=== PATIENT | female | born 1935 | race Caucasian/White ===

== ENCOUNTER 2020-12-04 17:04 | Emergency (ER) | payer MEDICARE, OTHER ==
[2020-12-04 18:16] LABS: BASOPHIL 0.2 % (0-2); EOSINOPHIL 0.1 % (0-7); HCT 49.8 % (37.0-47.0); HGB 16.6 g/dl (12.5-16.0); LYMPHOCYTE 11.5 % (15-48); MCH 30.2 pg (25.0-31.0); MCHC 33.3 g/dL (32.0-36.0); MCV 90.5 fL (78.0-100.0); MONOCYTE 7.5 % (0-12); MPV 10.2 fL (6.0-9.5); NEUTROPHIL 80.4 % (41-80); NRBC 0; PLT 229 K/uL (150-400); RDW 13.2 % (11.5-14.0); WBC 14.3 K/uL (4.0-10.5)
[2020-12-04 18:17] LABS: BILIRUBIN NEGATIVE (NEGATIVE); BLOOD NEGATIVE Ery/uL (NEGATIVE); CLARITY CLEAR (CLEAR); COLOR YELLOW (YELLOW); GLUCOSE (U) NORMAL (NORMAL); LEUKOCYTES 1+ Leu/uL (NEGATIVE); NITRITE NEGATIVE (NEGATIVE); PROTEIN NEGATIVE (NEGATIVE); SPECIFIC GRAVITY <=1.005 (1.001-1.030); UROBILINOGEN 0.2 mg/dL (0.2-1.0)
[2020-12-04 18:33] LABS: BACTERIA TRACE; URINARY WBC RARE
[2020-12-04 18:37] LABS: ALBUMIN 3.8 g/dL (3.4-5.0); BILIRUBIN - TOTAL 0.8 mg/dL (0.2-1.0); BUN/CREAT RATIO (CALC) 18.9 RATIO; CREATININE 0.53 mg/dL (0.51-0.95); GLOBULIN (CALCULATION) 4.2 g/dL
[2020-12-04] MEDS ORDERED: TRAMADOL HCL50 MG PO (21:10)
[2021-01-02] MEDS ORDERED: PRILOSEC20 MG PO (10:52)
[2021-01-02] MEDS ORDERED: CENTRUM SILVER1 EAC1 PO (10:52)
[2021-01-02] MEDS ORDERED: NORVASC5 MG PO (10:52)
[2021-01-02] MEDS ORDERED: ZOFRAN4 M1 PO (10:53)
[2021-01-03] MEDS ORDERED: MOTRIN600 MG PO (08:44)
[2021-01-03] MEDS ORDERED: ACETAMINOPHEN500 M1 PO (08:44)
== END 2020-12-04 21:20 | disposition home or self-care (01) ==
LOC: FER 17:04
PROVIDERS: Emergency Medicine
DX: R10.12 Left upper quadrant pain (principal); R10.32 Left lower quadrant pain; I10 Essential (primary) hypertension; K21.9 Gastro-esophageal reflux disease without esophagitis; Z90.49 Acquired absence of other specified parts of digestive tract; Z88.5 Allergy status to narcotic agent
CPT/HCPCS: 36415; 80053; 81001; 82150; 83605; 83690; 85025; J7030

== ENCOUNTER → 2021-01-03 | Day surgery (SDC) | payer MEDICARE, OTHER ==
[~2021-01-03] VITALS: Ht 157.5 cm; Wt 74.4 kg
[~2021-01-03] MED LIST: ACETAMINOPHEN500 M1 PO; CENTRUM SILVER1 EAC1 PO; MOTRIN600 MG PO; NORVASC5 MG PO; PRILOSEC20 MG PO; TRAMADOL HCL50 MG PO; ZOFRAN4 M1 PO
== END | disposition home or self-care (01) ==
LOC: FAS 06:37
DX: C54.1 Malignant neoplasm of endometrium (principal); I10 Essential (primary) hypertension; K21.9 Gastro-esophageal reflux disease without esophagitis; Z87.891 Personal history of nicotine dependence; Z79.899 Other long term (current) drug therapy
CPT/HCPCS: 71045; 76000; C1788; J0690; J1644; J2001; J2250; J2704; J3010; J7120

== ENCOUNTER 2021-06-15 12:40 | Emergency (ER) | payer MEDICARE, OTHER ==
[~2021-06-15] VITALS: Ht 157.5 cm; Wt 71.7 kg
[2021-06-15 14:45] LABS: BASOPHIL 0.6 % (0-2); EOSINOPHIL 0.6 % (0-7); HCT 43.1 % (37.0-47.0); HGB 14.6 g/dl (12.5-16.0); LYMPHOCYTE 48.2 % (15-48); MCH 31.5 pg (25.0-31.0); MCHC 33.9 g/dL (32.0-36.0); MCV 92.9 fL (78.0-100.0); MPV 9.8 fL (6.0-9.5); NEUTROPHIL 29.9 % (41-80); NRBC 0; PLT 117 K/uL (150-400); RBC 4.64 M/uL (4.20-5.40); RDW 12.7 % (11.5-14.0)
[2021-06-15 14:46] LABS: BILIRUBIN NEGATIVE (NEGATIVE); BLOOD NEGATIVE Ery/uL (NEGATIVE); CLARITY CLEAR (CLEAR); COLOR YELLOW (YELLOW); GLUCOSE (U) NORMAL (NORMAL); LEUKOCYTES NEGATIVE Leu/uL (NEGATIVE); NITRITE NEGATIVE (NEGATIVE); PROTEIN NEGATIVE (NEGATIVE); UROBILINOGEN 0.2 mg/dL (0.2-1.0)
[2021-06-15 14:48] LABS: WBC 1.6 K/uL (4.0-10.5)
[2021-06-15 14:49] LABS: MONOCYTE 20.1 % (0-12)
[2021-06-15 15:02] LABS: ALBUMIN 3.1 g/dL (3.4-5.0); BILIRUBIN - TOTAL 0.4 mg/dL (0.2-1.0); BUN/CREAT RATIO (CALC) 23.9 RATIO; CREATININE 0.46 mg/dL (0.51-0.95); GLOBULIN (CALCULATION) 3.8 g/dL; POTASSIUM 4.9 mmol/L (3.5-5.1); TOTAL PROTEIN 6.9 g/dL (6.4-8.2)
[2021-06-15] MEDS ORDERED: NORCO 5-325 TA1 EACH PO (16:24)
== END 2021-06-15 18:05 | disposition home or self-care (01) ==
LOC: FER 12:40
PROVIDERS: Nurse Practitioner Family
DX: S32.018A Other fracture of first lumbar vertebra, initial encounter for closed fracture (principal); K59.00 Constipation, unspecified; R10.32 Left lower quadrant pain; I10 Essential (primary) hypertension; W10.9XXA Fall (on) (from) unspecified stairs and steps, initial encounter
CPT/HCPCS: 36415; 72100; 80053; 81003; 83605; 85025; 87040; J1642; J2270; J2405; J7030; Q9967

== ENCOUNTER → 2021-11-23 | Day surgery (SDC) | payer MEDICARE, OTHER ==
[~2021-11-23] VITALS: Ht 157.5 cm; Wt 73.5 kg
[~2021-11-23] MED LIST changes: +CLARITIN-D 121 EACH PO; +NORCO 5-325 TA1 EACH PO
[2021-11-23 13:58] LABS: CREATININE 0.45 mg/dL (0.51-0.95); POTASSIUM 4.2 mmol/L (3.5-5.1)
== END | disposition home or self-care (01) ==
LOC: FAS 12:40
PROVIDERS: Anesthesiology
DX: J91.0 Malignant pleural effusion (principal); U07.1 COVID-19; K21.9 Gastro-esophageal reflux disease without esophagitis; I10 Essential (primary) hypertension; Z85.42 Personal history of malignant neoplasm of other parts of uterus; Z90.710 Acquired absence of both cervix and uterus; Z96.659 Presence of unspecified artificial knee joint; Z95.828 Presence of other vascular implants and grafts; Z72.0 Tobacco use
CPT/HCPCS: 36415; 71045; 80048; J0690; J2250; J2704; J7120